=== PATIENT | female | born 1980 | race African-American/Black ===

== ENCOUNTER → 2016-11-20 | Outpatient (CLI) | payer BC ==
[~2016-11-20] VITALS: Ht 165.1 cm; Wt 105.3 kg
[~2016-11-20] MED LIST: APPLE CIDER VI300 MG; HYDROCODONE-APA1 TA1 PO; IBUPROFEN 800800 M1 PO; NABUMETONE 750750 M1 PO; NORCO 5-325 TA1 EACH PO; PHENTERMINE H37.5 MG PO; SPIRONOLACT/HCT1 TA1; SPIRONOLACTONE50 MG PO; ZANAFLEX4 MG PO; ZOFRAN ODT4 MG PO
--- NOTE | ~2016-11-20 | HPC ---
[facility] [place] [address] PAIN MANAGEMENT CONSULTATION Name: KASSIDY JACOBSEN Cristofer Room #: REG CEDRICGhanshyam Dennis#: [id number] Admission: 11/20/16 Attend Phys: Kishore Pineda DO Discharge: Date of : 78 Report #: [id number] THIS REPORT FOR: //name// CC: [facility] physician/PCP Kishore Pineda HISTORY OF PRESENT ILLNESS: The patient is a 35-year-old female last seen in the pain clinic 04/11/2016. The patient was diagnosed with symptomatic lumbar radiculopathy, component of lumbosacral spondylosis. She was given epidural injection at last visit. Per the patient, this did afford a good transient relief of symptoms; however, she still has ongoing pain, left hip, buttock, posterior thigh to the calf. Pain is exacerbated with standing and walking. She has some paresthesia in the posterior thigh. We reviewed her MRI, which is somewhat dated from 03/2015. She does have focal left disk at L4-L5. She is desirous of moving forward with more definitive interventional therapy. While she had good transient relief following epidural injection she does not want to keep "covering up the symptoms." She states she had 60% relief for 4 months, but the pain has recurred. She states is getting worse. PHYSICAL EXAMINATION: Shows a 35-year-old female, BMI is modestly elevated, vital signs stable as noted in the EMR. Rises from chair using armrest, modestly antalgic gait. Lumbar flexion is good at 90 degrees, but she developed paresthesia in the left leg with flexion. Left plantar flexion, lower extremity flexion strength is diminished. Positive straight leg raise at 30 degrees on the left. Difficulty walking on her toes and left side. ASSESSMENT: Symptomatic lumbar radiculopathy by clinical exam and history. RECOMMENDATIONS: Per patient's request, we will refer her to Neurosurgery. Given that her MRI is greater than a year and half old, we will order an new MRI of the lumbar spine. DIAGNOSIS: Left L4 radiculopathy. The patient follow up on an as needed basis, I will be happy to do an injection to help, mitigate symptoms if requested. I did renew hydrocodone to be used sparingly, #45 tablets caution with daytime somnolence, mental acuity changes, constipation. <ELECTRONICALLY SIGNED> By: Kishore Pineda DO 11/24/16 [id number] [id number] Kishore Pineda DO /nt
[2016-11-20 14:57] VITALS: BP 120/83
== END | disposition home or self-care (01) ==
LOC: PAIN 11-17 13:36
DX: M47.897 Other spondylosis, lumbosacral region (principal); M54.16 Radiculopathy, lumbar region; G89.29 Other chronic pain; Z98.890 Other specified postprocedural states